=== PATIENT | female | born 1985 | race Caucasian/White ===

== ENCOUNTER 2018-01-16 18:31 | Inpatient (IN) | payer BC, OTHER ==
[~2018-01-16] VITALS: Ht 170.2 cm; Wt 43.1 kg
[2018-01-17] MEDS ORDERED: ARIP10TA9 PO (10:47)
[2018-01-17] MEDS ORDERED: LORAZEPAM 2 MG/1 ML VIAL IM PRN (11:00)
[2018-01-17] MEDS ORDERED: ONDANSETRON ODT 4 MG TAB.RAPDIS SL PRN (11:00)
[2018-01-17] MEDS ORDERED: CLONIDINE HCL 0.1 MG TABLET PO PRN (11:00)
[2018-01-17] MEDS ORDERED: LOPERAMIDE HCL 2 MG CAPSULE PO PRN ×2 (11:00)
[2018-01-17] MEDS ORDERED: diphenhydrAMINE 50 MG CAPSULE PO PRN (11:00)
[2018-01-17] MEDS ORDERED: ACETAMINOPHEN 325 MG TABLET PO PRN (11:00)
[2018-01-17] MEDS ORDERED: ONDANSETRON 4 MG/2 ML VIAL IM PRN (11:00)
[2018-01-17] MEDS ORDERED: MAG HYDROX/AL HYDROX/SIMETH 30 ML LIQUID UDC PO PRN (11:00)
[2018-01-17] MEDS ORDERED: BUPRENORPHINE HCL 2 MG TAB.SUBL SL PRN (11:00)
[2018-01-17] MEDS ORDERED: DICYCLOMINE HCL 20 MG TABLET PO PRN (11:00)
[2018-01-17] MEDS ORDERED: MIRALAX 17 GM POWD.PACK PO PRN (11:00)
[2018-01-17] MEDS ORDERED: DIAZEPAM 10 MG TABLET PO PRN ×2 (11:00)
[2018-01-17] MEDS ORDERED: DIAZEPAM 5 MG TABLET PO PRN (11:00)
[2018-01-17 11:58] LABS: *URINE HCG, QUAL NEGATIVE
[2018-01-17 12:10] LABS: *AMPHETAMINE, URINE NEGATIVE (NEGATIVE); *BARBITURATE, URINE NEGATIVE (NEGATIVE); *CANNABINOID, URINE POSITIVE (NEGATIVE); *COCCAINE, URINE NEGATIVE (NEGATIVE); *OPIATE, URINE NEGATIVE (NEGATIVE); *PHENCYCLIDINE SCREEN,URINE NEGATIVE (NEGATIVE)
[2018-01-17 12:29] VITALS: BP 127/66
[2018-01-17] MEDS ORDERED: AMOX500C2 PO (12:35)
[2018-01-17] MEDS: BUPRENORPHINE HCL 2 MG TAB.SUBL SL SCH ×3 (12:47→21:07)
[2018-01-17] MEDS: DIAZEPAM 10 MG TABLET PO SCH ×3 (12:47→21:07)
[2018-01-17 17:10] VITALS: BP 103/60
[2018-01-17 18:51] LABS: BASOPHILS # (AUTO) 0.1 K/uL (0.0-8.0); BASOPHILS % (AUTO) 0.7 % (0.0-2.0); EOSINOPHILS # (AUTO) 0.3 K/uL (0.0-0.7); EOSINOPHILS % (AUTO) 2.4 % (0.0-7.0); HEMATOCRIT 37.4 % (31.2-41.9); HEMOGLOBIN 12.6 g/dL (10.9-14.3); LYMPHOCYTES # (AUTO) 3.6 K/uL (20.0-40.0); LYMPHOCYTES % (AUTO) 27.8 % (20.5-51.5); MEAN CORPUSCULAR HEMOGLOBIN 29.5 uug (24.7-32.8); MEAN CORPUSCULAR HGB CONC 34 g/dL (32.3-35.6); MEAN CORPUSCULAR VOLUME 87.3 fL (75.5-95.3); MONOCYTES # (AUTO) 0.7 K/uL (2.0-10.0); MONOCYTES % (AUTO) 5.6 % (0.0-11.0); NEUTROPHILS # (AUTO) 8.3 K/uL (1.8-8.9); NEUTROPHILS % (AUTO) 63.5 % (38.5-71.5); PLATELET COUNT (AUTO) 251 K/uL (179-408); RED BLOOD CELL COUNT(AUTO) 4.29 MIL/uL (3.63-4.92)
[2018-01-17 19:21] LABS: ALANINE AMINOTRANSFERASE 17 U/L (14-59); ALKALINE PHOSPHATASE 50 U/L (50-136); ASPARTATE AMINOTRANSFERASE 12 U/L (15-37); BILIRUBIN,TOTAL 0.3 mg/dL (0.2-1.0); CARBON DIOXIDE 30 mmol/L (21-32); CHLORIDE 108 mmol/L (98-107); CREATININE 0.7 mg/dL (0.6-1.3); GLUCOSE 101 mg/dL (74-106); POTASSIUM 3.6 mmol/L (3.5-5.1); UREA NITROGEN, BLOOD 10 mg/dL (7-18)
[2018-01-17 19:28] LABS: THYROID STIMULATING HORMONE 1.595 mIU/mL (0.358-3.740)
[2018-01-17 19:52] LABS: ETHANOL < 3 MG/DL (0-0)
[2018-01-17 20:00] VITALS: BP 122/66
[2018-01-17] MEDS: IBUPROFEN 600 MG TABLET PO PRN (21:07)
[2018-01-17] MEDS: METHOCARBAMOL 750 MG TABLET PO PRN (21:43)
[2018-01-18] VITALS: BP 113/53
[2018-01-18 04:00] VITALS: BP 108/62
[2018-01-18 08:00] VITALS: BP 102/60
[2018-01-18] MEDS: DIAZEPAM 10 MG TABLET PO SCH ×3 (08:37→21:41)
[2018-01-18] MEDS: IBUPROFEN 600 MG TABLET PO PRN (08:37)
[2018-01-18] MEDS: METHOCARBAMOL 750 MG TABLET PO PRN (08:37)
[2018-01-18] MEDS: BUPRENORPHINE HCL 2 MG TAB.SUBL SL SCH ×3 (08:38→21:40)
[2018-01-18] MEDS ORDERED: TUBERCULIN,PURIF.PROT.DERIV. 5 TU/0.1 ML TEST ID ONE (09:00)
[2018-01-18] MEDS: ARIPIPRAZOLE 10 MG TABLET PO SCH (09:25)
[2018-01-18 12:00] VITALS: BP 114/60
[2018-01-18] MEDS: LIDOCAINE 5% PATCH TD SCH (12:56)
[2018-01-18 16:30] VITALS: BP 111/71
[2018-01-18 20:00] VITALS: BP 111/64
[2018-01-18] MEDS: MIRTAZAPINE 15 MG TABLET PO SCH (21:41)
[2018-01-19] VITALS: BP 106/67
[2018-01-19 04:00] VITALS: BP 118/71
[2018-01-19 08:00] VITALS: BP 114/79
[2018-01-19] MEDS: IBUPROFEN 600 MG TABLET PO PRN ×2 (08:51→21:47)
[2018-01-19] MEDS: LIDOCAINE 5% PATCH TD SCH ×2 (08:51→09:00)
[2018-01-19] MEDS: METHOCARBAMOL 750 MG TABLET PO PRN ×2 (08:51→16:12)
[2018-01-19] MEDS: ARIPIPRAZOLE 10 MG TABLET PO SCH (08:51)
[2018-01-19] MEDS ORDERED: HYDROXYZINE PAMOATE 25 MG CAPSULE PO PRN (09:00)
[2018-01-19] MEDS ORDERED: DIAZEPAM 5 MG TABLET PO SCH (09:00)
[2018-01-19] MEDS ORDERED: BUPRENORPHINE HCL 2 MG TAB.SUBL SL SCH (09:00)
[2018-01-19 10:06] LABS: BASOPHILS # (AUTO) 0.1 K/uL (0.0-8.0); BASOPHILS % (AUTO) 0.9 % (0.0-2.0); EOSINOPHILS # (AUTO) 0.7 K/uL (0.0-0.7); EOSINOPHILS % (AUTO) 5.6 % (0.0-7.0); HEMOGLOBIN 12.8 g/dL (10.9-14.3); LYMPHOCYTES # (AUTO) 3.4 K/uL (20.0-40.0); LYMPHOCYTES % (AUTO) 28.5 % (20.5-51.5); MEAN CORPUSCULAR HEMOGLOBIN 29.7 uug (24.7-32.8); MEAN CORPUSCULAR HGB CONC 34 g/dL (32.3-35.6); MEAN CORPUSCULAR VOLUME 88.5 fL (75.5-95.3); MONOCYTES # (AUTO) 0.8 K/uL (2.0-10.0); MONOCYTES % (AUTO) 6.3 % (0.0-11.0); NEUTROPHILS % (AUTO) 58.7 % (38.5-71.5); PLATELET COUNT (AUTO) 241 K/uL (179-408); RED BLOOD CELL COUNT(AUTO) 4.29 MIL/uL (3.63-4.92); WHITE BLOOD COUNT (AUTO) 11.9 K/uL (3.8-11.8)
[2018-01-19 10:18] LABS: CREATININE 0.7 mg/dL (0.6-1.3); MAGNESIUM 1.7 mg/dL (1.8-2.4); PHOSPHOROUS 2.8 mg/dL (2.5-4.9); POTASSIUM 3.4 mmol/L (3.5-5.1)
[2018-01-19] MEDS ORDERED: KETOROLAC TROMETHAMINE 30 MG INJ IM PRN (11:15)
[2018-01-19] MEDS ORDERED: PRAZOSIN HCL 1 MG CAPSULE PO PRN (11:15)
[2018-01-19] MEDS ORDERED: MAGNESIUM OXIDE 400 MG TABLET PO ONE (12:00)
[2018-01-19] MEDS ORDERED: POTASSIUM CHLORIDE 10 MEQ TAB.PRT.SR PO ONE (12:00)
[2018-01-19 12:16] VITALS: BP 111/66
[2018-01-19] MEDS: DIAZEPAM 5 MG TABLET PO SCH ×2 (12:41→16:12)
[2018-01-19 14:07] LABS: HEPATITIS B SURFACE AG Negative (Negative)
[2018-01-19] MEDS: BUPRENORPHINE HCL 2 MG TAB.SUBL SL SCH ×2 (14:23→20:39)
[2018-01-19 16:37] VITALS: BP 121/78
[2018-01-19 20:02] VITALS: BP 131/84
[2018-01-19] MEDS: MIRTAZAPINE 15 MG TABLET PO SCH (20:38)
[2018-01-19] MEDS: BACLOFEN 10 MG TABLET PO SCH (20:39)
[2018-01-19] MEDS: GABAPENTIN 300 MG CAPSULE PO SCH (20:39)
[2018-01-19] MEDS ORDERED: DIAZEPAM 10 MG TABLET PO SCH (21:00)
[2018-01-20 00:42] VITALS: BP 127/82
[2018-01-20 04:19] VITALS: BP 122/78
[2018-01-20 07:29] LABS: CREATININE 0.7 mg/dL (0.6-1.3); PHOSPHOROUS 3.3 mg/dL (2.5-4.9); POTASSIUM 4.5 mmol/L (3.5-5.1)
[2018-01-20 07:38] LABS: *RHEUMATOID FACTOR SCREEN NEGATIVE (NEGATIVE)
[2018-01-20 08:52] VITALS: BP 124/62
[2018-01-20] MEDS: BACLOFEN 10 MG TABLET PO SCH ×2 (08:54→14:04)
[2018-01-20] MEDS: ARIPIPRAZOLE 10 MG TABLET PO SCH (08:54)
[2018-01-20] MEDS: DIAZEPAM 5 MG TABLET PO SCH ×2 (08:54→14:04)
[2018-01-20] MEDS: GABAPENTIN 300 MG CAPSULE PO SCH ×2 (08:54→14:04)
[2018-01-20] MEDS: BUPRENORPHINE HCL 2 MG TAB.SUBL SL SCH ×2 (08:54→14:04)
[2018-01-20 12:00] VITALS: BP 128/88
[2018-01-20] MEDS: METHOCARBAMOL 750 MG TABLET PO PRN (14:04)
[2018-01-20] MEDS: IBUPROFEN 600 MG TABLET PO PRN (14:04)
[2018-01-20 16:29] VITALS: BP 115/63
[2018-01-20 20:10] VITALS: BP 124/66
[2018-01-20] MEDS ORDERED: PRAZOSIN HCL 1 MG CAPSULE PO SCH (21:00)
[2018-01-20] MEDS ORDERED: LIDOCAINE 5% PATCH TD SCH (21:00)
[2018-01-21] MEDS: DIAZEPAM 5 MG TABLET PO SCH (00:01)
[2018-01-21] MEDS: BACLOFEN 10 MG TABLET PO SCH ×2 (00:01→08:08)
[2018-01-21] MEDS: MIRTAZAPINE 15 MG TABLET PO SCH (00:01)
[2018-01-21] MEDS: BUPRENORPHINE HCL 2 MG TAB.SUBL SL SCH (00:01)
[2018-01-21] MEDS: GABAPENTIN 300 MG CAPSULE PO SCH ×2 (00:01→08:08)
[2018-01-21 00:17] VITALS: BP 117/68
[2018-01-21 04:08] VITALS: BP 114/72
[2018-01-21 08:00] VITALS: BP 113/62
[2018-01-21] MEDS: ARIPIPRAZOLE 10 MG TABLET PO SCH (08:08)
[2018-01-21] MEDS ORDERED: DIAZEPAM 5 MG TABLET PO SCH (09:00)
[2018-01-21] MEDS ORDERED: BUPRENORPHINE HCL 2 MG TAB.SUBL SL SCH (09:00)
[2018-01-21] MEDS ORDERED: PRAZ1CAP2 PO (10:30)
[2018-01-21] MEDS ORDERED: DICY20TA28 PO (10:30)
[2018-01-21] MEDS ORDERED: CLON0.1T14 PO (10:30)
[2018-01-21] MEDS ORDERED: LIDO30AD10 TD (10:30)
[2018-01-21] MEDS ORDERED: IBUP-1955 PO (10:30)
[2018-01-21] MEDS ORDERED: HYDR-3895 PO (10:30)
[2018-01-21] MEDS ORDERED: DOCU100C36 PO (10:30)
[2018-01-21] MEDS ORDERED: GABA-534 PO ×2 (10:30)
[2018-01-21] MEDS ORDERED: BACL20TA PO (10:30)
[2018-01-21 12:00] VITALS: BP 117/67
[2018-01-21 12:11] VITALS: BP 117/67
[2018-01-21] MEDS ORDERED: DOCUSATE SODIUM 100 MG CAPSULE PO SCH (13:00)
[2018-01-21] MEDS ORDERED: BACLOFEN 20 MG TABLET PO SCH (15:00)
[2018-01-21] MEDS ORDERED: GABAPENTIN 300 MG CAPSULE PO SCH ×2 (15:00→21:00)
[2018-01-21] MEDS ORDERED: PRAZOSIN HCL 1 MG CAPSULE PO SCH (21:00)
[2018-01-22] MEDS ORDERED: DIAZEPAM 5 MG TABLET PO SCH (09:00)
[2018-01-22] MEDS ORDERED: BUPRENORPHINE HCL 2 MG TAB.SUBL SL SCH (09:00)
[2018-01-22 11:08] LABS: *ANTI-SCLERODERMA-70 AB 0.6 AI (0.0-0.9); *SJOGREN'S ANTI-SS-A <0.2 AI (0.0-0.9); *SJOGREN'S ANTI-SS-B <0.2 AI (0.0-0.9); *SMITH ANTIBODIES <0.2 AI (0.0-0.9); ANTI-DNA(DS) AB, QN 2 IU/mL (0-9)
== END 2018-01-21 13:10 | DRG 895 ==
LOC: EDSEX 01-17 09:50 → SRC 01-17 09:50
PROVIDERS: ADMIT Internal Medicine; ATTEND Internal Medicine
PROC: HZ2ZZZZ Detoxification Services for Substance Abuse Treatment (ICD-10-PCS; principal; 2018-01-17)
PROC: HZ41ZZZ Group Counseling for Substance Abuse Treatment, Behavioral (ICD-10-PCS; principal; 2018-01-17)
DX: F13.232 Sedative, hypnotic or anxiolytic dependence with withdrawal with perceptual disturbance (principal); F50.00 Anorexia nervosa, unspecified; F11.23 Opioid dependence with withdrawal; G43.909 Migraine, unspecified, not intractable, without status migrainosus; F17.210 Nicotine dependence, cigarettes, uncomplicated; G47.00 Insomnia, unspecified; Z86.79 Personal history of other diseases of the circulatory system; Z87.09 Personal history of other diseases of the respiratory system; F41.0 Panic disorder [episodic paroxysmal anxiety]; F41.1 Generalized anxiety disorder; E83.42 Hypomagnesemia; E87.6 Hypokalemia; F12.90 Cannabis use, unspecified, uncomplicated; F39 Unspecified mood [affective] disorder; F51.4 Sleep terrors [night terrors]; Z79.899 Other long term (current) drug therapy; D72.829 Elevated white blood cell count, unspecified; M25.50 Pain in unspecified joint
CPT/HCPCS: 36415; 70030-TC; 80307; 80346; 80349; 83735; 84100; 84443; 84703; 85025; 86038; 86430; 86580; 86592; 86705; 86803; 87340; 87806; A4663; G0480; J1885